=== PATIENT | female | born 1945 | race Two or more races ===

== ENCOUNTER 2024-04-09 09:31 | Inpatient (IN) | payer OTHER ==
[~2024-04-09] VITALS: Ht 160 cm; Wt 86.2 kg
[2024-04-09] MEDS ORDERED: MONODOX100 MG (10:20)
[2024-04-09] MEDS ORDERED: LEVO-T50 MCG (10:20)
[2024-04-09] MEDS ORDERED: PROTONIX40 M1 PO (10:21)
[2024-04-09] MEDS ORDERED: ZYLOPRIM100 M1 (10:21)
[2024-04-09] MEDS ORDERED: MONTELUKAST SODI4 M1 (10:22)
[2024-04-09] MEDS ORDERED: BENZONATATE200 M1 (10:22)
[2024-04-09] MEDS ORDERED: ACTOS45 MG (10:22)
[2024-04-09] MEDS ORDERED: DICY20TA PO (10:22)
[2024-04-09] MEDS ORDERED: GLIMEPIRIDE4 MG (10:23)
[2024-04-09] MEDS ORDERED: IPRATROPIUM BROMIDE 0.5 MG/2.5 ML AMPUL.NEB IH STA (10:52)
[2024-04-09] MEDS ORDERED: LEVALBUTEROL HCL 1.25 MG/3 ML SOLUTION IH STA (10:52)
[2024-04-09] MEDS ORDERED: BUDESONIDE 0.5 MG/2 ML AMPUL.NEB IH STA (10:53)
[2024-04-09] MEDS ORDERED: METHYLPREDNISOLONE SOD SUCC 125 MG VIAL IV STA (10:54)
[2024-04-09] MEDS ORDERED: 0.9 % SODIUM CHLORIDE 500 ML IV STA (10:55)
[2024-04-09] MEDS ORDERED: METHYLPREDNISOLONE SOD SUCC 125 MG VIAL ONE (11:01)
[2024-04-09 11:29] LABS: HEMATOCRIT 31.7 % (36.0-45.00); HEMOGLOBIN 10.3 g/dL (12.0-15.00); MEAN CELL VOLUME 90.2 fL (80.00-100.00); MEAN CORPUSCULAR HEMOGLOBIN 29.2 pg (27.00-32.0); MEAN CORPUSCULAR HGB CONC 32.4 g/dl (32.0-36.0); PLATELET COUNT 210 K/uL (150-450); RED BLOOD COUNT 3.52 M/uL (4.00-6.00); RED CELL DISTRIBUTION WIDTH 13.5 % (11.5-14.5)
[2024-04-09] MEDS ORDERED: LEVALBUTEROL HCL 1.25 MG/3 ML SOLUTION IH ONE (11:32)
[2024-04-09] MEDS ORDERED: BUDESONIDE 0.5 MG/2 ML AMPUL.NEB IH ONE (11:33)
[2024-04-09] MEDS ORDERED: IPRATROPIUM BROMIDE 0.5 MG/2.5 ML AMPUL.NEB IH ONE (11:33)
[2024-04-09 11:38] LABS: ABG PH 7.392 (7.35-7.45); ABG PO2 74.1 mmHg (80-100); ABG pCO2 32.3 mmHg (35-45); BASE EXCESS -4.6 mmol/l; BICARBONATE 19.2 mmol/l (23-25); SaO2 94.3 %; Tco2 20.2 mmol/l
[2024-04-09 11:47] LABS: ALBUMIN 3.5 gm/dL (3.4-5.0); BILIRUBIN TOTAL 0.83 mg/dL (0.3-1.2); BILIRUBIN,CONJUGATED 0.25 mg/dL (0.0-0.2); BILIRUBIN,UNCONJUGATED 0.58 mg/dL (0.0-0.6); CALCIUM 9.1 mg/dL (8.5-10.1); CREATININE SERUM 1.5 mg/dL (0.55-1.02); GFR 33.41; POTASSIUM 4.53 mEq/L (3.5-5.1); TOTAL PROTEIN 7.3 gm/dL (6.4-8.2)
[2024-04-09 11:58] LABS: URINE APPEARANCE Clear; URINE BILIRRUBIN Negative (NEGATIVE); URINE BLOOD Negative; URINE COLOR Yellow; URINE KETONE Negative (NEGATIVE); URINE LEUKOCYTE Trace; URINE NITRATE Negative; URINE PROTEIN Trace (NEGATIVE); URINE UROBILINOGEN 0.2 E.U./dl
[2024-04-09 12:02] LABS: URINE BACTERIA 81.9 uL (0.0-1933); URINE EPITHELIAL CELLS 6.4 uL (0.0-38.8)
[2024-04-09 12:21] LABS: o2 21 %
[2024-04-09 12:22] LABS: allen test SATISFACTORY; puncture site RADIAL LEFT
[2024-04-09 12:23] LABS: URINE CAST 0.44 uL (0.0-1.40); URINE GLUCOSE >=1000 MG/DL (NEGATIVE); URINE RBC 0.8 uL (0.0-20.8)
[2024-04-09] MEDS ORDERED: levoFLOXacin IN DEXTROSE 5 % 100 ML IV SCH (19:19)
[2024-04-09] MEDS ORDERED: IPRATROPIUM BROMIDE 0.5 MG/2.5 ML AMPUL.NEB IH SCH (19:29)
[2024-04-09] MEDS ORDERED: INSULIN LISPRO 1,000 UNIT/10 ML UNITS SUBCUTANEO PRN (19:30)
[2024-04-09] MEDS ORDERED: 0.9 % SODIUM CHLORIDE 1,000 ML IV SCH (19:30)
[2024-04-09] MEDS ORDERED: ACETAMINOPHEN 500 MG GEL..CAP PO PRN (19:30)
[2024-04-09] MEDS ORDERED: DEXTROSE 50 % IN WATER 0.5 G/ML DISP.SYRIN IV PRN (19:30)
[2024-04-09] MEDS ORDERED: GUAIFEN/DEXTROMETHORPHAN/PE 10 ML BLIST.PACK PO SCH (21:00)
[2024-04-09] MEDS ORDERED: levoFLOXacin IN DEXTROSE 5 % 500MG/100ML PIGGYBAG IV ONE (21:49)
[2024-04-09] MEDS ORDERED: GUAIFEN/DEXTROMETHORPHAN/PE 10 ML BLIST.PACK PO ONE (21:49)
[2024-04-09] MEDS ORDERED: INSULIN LISPRO 1,000 UNIT/10 ML UNITS SUBCUTANEO ONE (22:01)
[2024-04-09 22:21] LABS: INR 1.13; PARTIAL THROMBOPLASTIN TIME 34.7 SECONDS (22.0-34.0); PROTHROMBIN TIME 12.2 SECONDS (9.0-11.5)
[2024-04-09 22:41] VITALS: BP 182/77
[2024-04-10 02:32] VITALS: BP 148/67; O2SAT 95
[2024-04-10] MEDS ORDERED: LEVOTHYROXINE SODIUM 50 MCG TABLET PO SCH (06:00)
[2024-04-10] MEDS ORDERED: HYDROXYCHLOROQUINE SULFATE 200 MG TABLET PO SCH (09:00)
[2024-04-10] MEDS ORDERED: FAMOTIDINE/PF 20 MG in 0.9 % SODIUM CHLORIDE 8 ML IV PUSH SCH (09:00)
[2024-04-10] MEDS ORDERED: ENOXAPARIN SODIUM 40 MG/0.4 ML SYRINGE SUBCUTANEO SCH (09:00)
[2024-04-10 09:26] VITALS: BP 133/64
[2024-04-10] MEDS ORDERED: LACTOBACILLUS ACIDOPHILUS 1 CAP CAP PO SCH (17:00)
[2024-04-10] MEDS ORDERED: MONTELUKAST SODIUM 10 MG TABLET PO SCH (17:00)
[2024-04-10] MEDS ORDERED: ENALAPRILAT DIHYDRATE 1.25 MG/ML VIAL IV ONE (17:41)
[2024-04-10 18:45] VITALS: BP 170/63
[2024-04-10] MEDS ORDERED: MELATONIN 5 MG TABLET PO SCH (21:00)
[2024-04-11 01:53] VITALS: BP 140/70
[2024-04-11 07:20] LABS: HEMATOCRIT 28.9 % (36.0-45.00); HEMOGLOBIN 9.5 g/dL (12.0-15.00); MEAN CELL VOLUME 89.4 fL (80.00-100.00); MEAN CORPUSCULAR HEMOGLOBIN 29.3 pg (27.00-32.0); MEAN CORPUSCULAR HGB CONC 32.8 g/dl (32.0-36.0); PLATELET COUNT 222 K/uL (150-450); RED BLOOD COUNT 3.23 M/uL (4.00-6.00); RED CELL DISTRIBUTION WIDTH 13.6 % (11.5-14.5)
[2024-04-11 08:24] LABS: BILIRUBIN TOTAL 0.75 mg/dL (0.3-1.2); CALCIUM 8.8 mg/dL (8.5-10.1); CREATININE SERUM 1.38 mg/dL (0.55-1.02); GFR 36.79; GLOBULINA 2.8 G/DL (2.4-3.5); MAGNESIUM 2.1 mg/dL (1.8-2.4); PHOSPHOROUS 2.3 mg/dL (2.5-4.9); POTASSIUM 4.65 mEq/L (3.5-5.1); TOTAL PROTEIN 5.8 gm/dL (6.4-8.2); TSH 1.17 uIU/mL (0.358-3.74)
[2024-04-11 08:34] LABS: C-REACTIVE PROTEIN 5.38 MG/DL (0.00-0.29)
[2024-04-11 08:36] LABS: MYCOPLASMA PNEUMONIAE IGM NON REACTIVE (NO REACTIVE)
[2024-04-11 08:49] VITALS: BP 177/75
[2024-04-11] MEDS ORDERED: FLUOXETINE HCL 20 MG CAPSULE PO SCH (09:00)
[2024-04-11] MEDS ORDERED: levoFLOXacin 750 MG TABLET PO SCH (09:00)
[2024-04-11] MEDS ORDERED: LOSARTAN POTASSIUM 100 MG TABLET PO SCH (09:00)
[2024-04-11] MEDS ORDERED: BENZONATATE 100 MG CAPSULE PO SCH (17:00)
[2024-04-11 17:20] VITALS: BP 141/63
[2024-04-11] MEDS ORDERED: LORATADINE 10 MG TABLET PO SCH (21:00)
[2024-04-11] MEDS ORDERED: FLUTICASONE PROPIONATE 50 MCG SPRAY NASAL SCH (21:00)
[2024-04-11] MEDS ORDERED: METHYLPREDNISOLONE SOD SUCC 40 MG VIAL IV SCH (21:00)
[2024-04-12 02:24] VITALS: BP 135/67; O2SAT 97
[2024-04-12 09:33] VITALS: BP 184/80
[2024-04-12 18:01] VITALS: BP 160/73; O2SAT 98
[2024-04-13 01:28] VITALS: BP 132/65; O2SAT 97
[2024-04-13 09:42] VITALS: BP 174/76
[2024-04-13] MEDS ORDERED: INSULIN LISPRO 1,000 UNIT/10 ML UNITS SUBCUTANEO PRN (14:15)
[2024-04-13] MEDS ORDERED: INSULIN GLARGINE,HUM.REC.ANLOG 1,000 UNITS/10 ML UNITS SUBCUTANEO STA (15:05)
[2024-04-13 17:38] VITALS: BP 160/65; O2SAT 97
[2024-04-14 00:36] VITALS: BP 128/68; O2SAT 99
[2024-04-14 06:44] LABS: HEMATOCRIT 33.3 % (36.0-45.00); HEMOGLOBIN 11.2 g/dL (12.0-15.00); MEAN CELL VOLUME 88.3 fL (80.00-100.00); MEAN CORPUSCULAR HEMOGLOBIN 29.8 pg (27.00-32.0); MEAN CORPUSCULAR HGB CONC 33.7 g/dl (32.0-36.0); PLATELET COUNT 304 K/uL (150-450); RED BLOOD COUNT 3.77 M/uL (4.00-6.00); RED CELL DISTRIBUTION WIDTH 13.5 % (11.5-14.5)
[2024-04-14 07:15] LABS: ALBUMIN 3.2 gm/dL (3.4-5.0); BILIRUBIN TOTAL 0.43 mg/dL (0.3-1.2); CALCIUM 9.4 mg/dL (8.5-10.1); CREATININE SERUM 1.4 mg/dL (0.55-1.02); GFR 36.18; GLOBULINA 3.1 G/DL (2.4-3.5); POTASSIUM 4.77 mEq/L (3.5-5.1); TOTAL PROTEIN 6.3 gm/dL (6.4-8.2)
[2024-04-14 08:56] VITALS: BP 186/78
[2024-04-14] MEDS ORDERED: INSULIN GLARGINE,HUM.REC.ANLOG 1,000 UNITS/10 ML UNITS SUBCUTANEO SCH (09:00)
[2024-04-14] MEDS ORDERED: METHYLPREDNISOLONE SOD SUCC 40 MG VIAL IV SCH (09:00)
[2024-04-14] MEDS ORDERED: INSULIN NPH HUMAN ISOPHANE 1,000 UNITS/10 ML UNITS SUBCUTANEO SCH (09:00)
== END 2024-04-14 15:44 | disposition home or self-care (01) | DRG 194 ==
LOC: ER 09:34 → MEDJ 19:58
PROVIDERS: General Practice; Internal Medicine Infectious Disease; ADMIT Internal Medicine; ATTEND Internal Medicine
PROC: BB24ZZZ Computerized Tomography (CT Scan) of Bilateral Lungs (ICD-10-PCS; principal; 2024-04-09)
PROC: 3E0F7GC Introduction of Other Therapeutic Substance into Respiratory Tract, Via Natural or Artificial Opening (ICD-10-PCS; 2024-04-10)
DX: J18.0 Bronchopneumonia, unspecified organism (principal); N17.9 Acute kidney failure, unspecified; R65.10 Systemic inflammatory response syndrome (SIRS) of non-infectious origin without acute organ dysfunction; J18.8 Other pneumonia, unspecified organism; E11.65 Type 2 diabetes mellitus with hyperglycemia; D64.9 Anemia, unspecified; R06.03 Acute respiratory distress; I12.9 Hypertensive chronic kidney disease with stage 1 through stage 4 chronic kidney disease, or unspecified chronic kidney disease; E11.22 Type 2 diabetes mellitus with diabetic chronic kidney disease; N18.9 Chronic kidney disease, unspecified; E88.810 Metabolic syndrome; E03.9 Hypothyroidism, unspecified; Z88.0 Allergy status to penicillin; Z79.84 Long term (current) use of oral hypoglycemic drugs; Z88.6 Allergy status to analgesic agent; Z88.8 Allergy status to other drugs, medicaments and biological substances